=== PATIENT | female | born 1980 | race Caucasian/White ===

== ENCOUNTER 2024-02-21 12:51 | Inpatient (IN) | payer BC, OTHER ==
[~2024-02-21] VITALS: Ht 162.6 cm; Wt 86.4 kg
[2024-02-21 13:18] LABS: Basophils # (auto) 0 10 ^3/uL (0-0.2); Basophils % (auto) 0.7 % (0.0-2.0); Eosinophils # (auto) 0.2 10 ^3/uL (0-0.8); Eosinophils % (auto) 2.7 % (0.0-7.0); Hemoglobin 14.9 g/dL (12.2-16.2); Lymphocytes # (auto) 1.7 10 ^3/uL (0.4-5.4); Lymphocytes % (auto) 25.3 % (10.0-50.0); Mean Corpuscular Hemoglobin 30.9 pg (28.0-32.0); Mean Corpuscular Hgb Conc. 34.7 g/dL (32.0-36.0); Mean Corpuscular Volume 89.3 fL (80.0-100.0); Monocytes # (auto) 0.4 10 ^3/uL (0-1.3); Monocytes % (auto) 5.2 % (0.0-12.0); Neutrophils # (auto) 4.5 10 ^3/uL (1.6-8.6); Neutrophils % (auto) 66.1 % (37.0-80.0); Nucleated Red Blood Cells % 0.1 %; Red Blood Cells 4.82 10^6/uL (4.0-5.20); Red Cell Distribution Width 13.9 % (11.8-14.3); White Blood Cell 6.8 10^3/uL (4.4-10.8)
[2024-02-21] MEDS: SODIUM CHLORIDE 0.9% 1,000 ML IV ONE (13:33)
[2024-02-21 13:36] LABS: Alanine Aminotransferase 24 U/L (7-40); Albumin 4.7 g/dL (3.2-4.8); Alkaline Phosphatase 79 U/L (46-116); Anion Gap 15 (5-15); Aspartate Aminotransferase 29 U/L (13-40); BUN/Creatinine Ratio 9.5 (10.0-20.0); Bilirubin, Total 0.9 mg/dL (0.2-1.0); Blood Urea Nitrogen 9 mg/dL (9-23); Calcium 9.4 mg/dL (8.7-10.4); Carbon Dioxide 15 mmol/L (20-30); Chloride 110 mmol/L (98-107); Glucose 117 mg/dL (74-106); Potassium 4.4 mmol/L (3.5-5.1); Sodium 140 mmol/L (136-145); Total Protein 6.8 g/dL (5.7-8.2)
[2024-02-21 14:17] VITALS: PULSE 88; RESP 22; O2SAT 98
[2024-02-21] MEDS: methylPREDNISolone SOD SUCC 125 MG/2 ML VL IV ONE (15:25)
[2024-02-21] MEDS: PANTOPRAZOLE 40 MG/10 ML VIAL INJ IV SCH (17:47)
[2024-02-21 20:00] VITALS: BP 132/74; PULSE 89; PULSE 97; RESP 17; RESP 20; TEMP 98.3; O2SAT 96; O2SAT 98
[2024-02-21] MEDS: SODIUM CHLOR 0.9% PF (SALINE LOCK) 10ML VIAL/SYR IV SCH (20:46)
[2024-02-21] MEDS: MORPHINE SULFATE INJ 2 MG/ml SYRG IV PRN (20:46)
[2024-02-21] MEDS: HYDROmorphone HCL 2 MG/ML VL/or syr IV PRN (22:12)
[2024-02-21] MEDS: NITROGLYCERIN 0.4 MG SL TAB SL PRN (22:18)
[2024-02-22] MEDS: ACETAMINOPHEN 325 MG TAB PO PRN (03:09)
[2024-02-22 04:34] VITALS: BP 106/47; PULSE 56; RESP 17; TEMP 97.9; O2SAT 96
[2024-02-22] MEDS: ONDANSETRON HCL 4 MG/2 ML VIAL IV PRN (07:53)
[2024-02-22 08:15] VITALS: PULSE 71; RESP 15; O2SAT 96
[2024-02-22 08:41] LABS: Basophils # (auto) 0 10 ^3/uL (0-0.2); Basophils % (auto) 0.1 % (0.0-2.0); Eosinophils # (auto) 0 10 ^3/uL (0-0.8); Hematocrit 37.9 % (36.0-46.0); Hemoglobin 13.3 g/dL (12.2-16.2); Lymphocytes # (auto) 0.6 10 ^3/uL (0.4-5.4); Lymphocytes % (auto) 6.2 % (10.0-50.0); Mean Corpuscular Hemoglobin 31.6 pg (28.0-32.0); Mean Corpuscular Volume 90.3 fL (80.0-100.0); Monocytes # (auto) 0.2 10 ^3/uL (0-1.3); Monocytes % (auto) 2.2 % (0.0-12.0); Neutrophils % (auto) 91.5 % (37.0-80.0); Red Cell Distribution Width 13.7 % (11.8-14.3); White Blood Cell 9.8 10^3/uL (4.4-10.8)
[2024-02-22] MEDS: HYDROcodone-ACET 5/325MG TAB PO PRN (09:16)
[2024-02-22 09:35] LABS: Chloride 109 mmol/L (98-107); Potassium 4.1 mmol/L (3.5-5.1); Sodium 138 mmol/L (136-145)
[2024-02-22 09:36] LABS: Anion Gap 4 (5-15); Carbon Dioxide 25 mmol/L (20-30)
[2024-02-22 09:41] LABS: BUN/Creatinine Ratio 8.3 (10.0-20.0); Blood Urea Nitrogen 6 mg/dL (9-23); Glucose 128 mg/dL (74-106); Triglycerides 62 mg/dL (< 150)
[2024-02-22 09:42] LABS: LDL Cholesterol 122 mg/dL (< 100); Magnesium 1.8 mg/dL (1.6-2.6)
[2024-02-22 09:43] LABS: Cholesterol 179 mg/dL (< 200); HDL Cholesterol 53 mg/dL (40-59)
[2024-02-22] MEDS: ASPirin 81 mg TAB PO SCH (11:08)
[2024-02-22] MEDS: ENOXAPARIN SOD 40 MG/0.4 ML SYRINGE SC SCH (11:08)
[2024-02-22 14:05] VITALS: BP 126/56; PULSE 89; RESP 20; TEMP 98.2; O2SAT 96
[2024-02-22 14:27] VITALS: BP 122/52; PULSE 81; RESP 18
[2024-02-22] MEDS ORDERED: ASPI-325 PO (14:53)
[2024-02-22] MEDS ORDERED: ATORVASTATIN 20 MG TAB PO SCH (22:00)
== END 2024-02-22 15:25 | disposition home or self-care (01) | DRG 313 ==
LOC: ER 12:54 → EDBD 12:54 → TELE 16:23
PROVIDERS: ADMIT Internal Medicine Geriatric Medicine; ATTEND Internal Medicine Geriatric Medicine
DX: R07.89 Other chest pain (principal); I24.9 Acute ischemic heart disease, unspecified; J45.909 Unspecified asthma, uncomplicated; E78.5 Hyperlipidemia, unspecified; F41.9 Anxiety disorder, unspecified; E66.9 Obesity, unspecified; Z88.1 Allergy status to other antibiotic agents; Z88.0 Allergy status to penicillin; Z90.710 Acquired absence of both cervix and uterus; Z98.84 Bariatric surgery status; Z68.32 Body mass index [BMI] 32.0-32.9, adult; I25.2 Old myocardial infarction
CPT/HCPCS: 36415; 71045; 80048; 80053; 80061; 83036; 83735; 84443; 84484; 85025; 93005; 93306; 96360; 96361; 99291; G0378; J2405; J2470